=== PATIENT | female | born 1990 | race Caucasian/White ===

== ENCOUNTER 2019-10-02 08:35 | Inpatient (IN) | payer BC ==
[~2019-10-02] VITALS: Ht 165.1 cm; Wt 96.4 kg
[2019-10-02] VITALS (13 sets, daily range): BP systolic 108–142; BP diastolic 54–83; PULSE 66–92; TEMP 97.9–98.5
--- NOTE | 2019-10-02 19:00 | NUR ---
G1L0. 40-2. Ambulatory to LDR 5 with spouse. Clean gown on. EFM and TOCO explained and applied. Pt denies contractions, LOF, or vaginal bleeding. Reports good movement. Plan of care explained to pt and spouse who verbalize their understanding. 1915: IV started and labs obtained via IV site. LR bolus infusing without difficulties. Assessment and consent completed. 1945: called and updated on pts status. See physican notification. 2006: SVE /-3. Cytotoec explained and administered PO per orders. Questions answered. Call light within reach.
[2019-10-02] MEDS ORDERED: SYNTHROID0.075 MG/T PO (19:26)
[2019-10-02] MEDS ORDERED: VALTREX 50500 MG/TAB PO (19:26)
[2019-10-02] MEDS ORDERED: PRENATAL MVI PO (19:27)
[2019-10-02 20:17] LABS: BASO % 0.4 % (0.0-2.0); EOS # 0.1 (0.0-0.7); EOS % 1.2 % (0-4.0); GRAN # 6.6 (1.4-6.5); LYMPH # 2.6 (1.2-3.4); MEAN CELL VOLUME 76 fl (80.0-100.0); MEAN CORPUSCULAR HEMOGLOBIN 25 pg (27.0-31.0); MEAN CORPUSCULAR HGB CONC 33 g/dl (33.0-37.0); MEAN PLATELET VOLUME 10.1 fl (7.4-10.4); MONO # 0.8 (0.1-0.6); MONO % 8.1 % (1.7-9.3); PLATELET COUNT 326 K/mm3 (130-400); REDCELL DISTRIBUTION WIDTH-CV 14.7 % (11.5-14.5)
[2019-10-02 20:18] LABS: HEMATOCRIT 33.6 % (37.0-47.0)
[2019-10-02 20:59] LABS: ALBUMIN 3.6 gm/dL (3.5-5.0); BILIRUBIN,TOTAL 0.2 mg/dL (0.0-1.0); CREATININE, serum 0.58 (0.52-1.25); POTASSIUM 3.9 mmol/L (3.4-5.0); TOTAL PROTEIN 7.1 gm/dL (6.4-8.2)
[2019-10-02 22:21] LABS: COLLECTION METHOD CLEAN CATCH
[2019-10-02 22:25] LABS: MUCOUS Present /lpf; PH 6 (5-8); SQUAMOUS EPITHELIAL 0-2 /hpf; URINE APPEARANCE Clear; URINE BACTERIA Rare /hpf; URINE BILIRUBIN Negative (NEGATIVE); URINE BLOOD Negative (NEGATIVE); URINE COLOR Yellow; URINE GLUCOSE Negative (NEGATIVE); URINE KETONE Negative (NEGATIVE); URINE LEUKOCYTE ESTERASE Negative (NEGATIVE); URINE NITRATE Negative (NEGATIVE); URINE PROTEIN(semi-quant) Negative (NEGATIVE); URINE RBC 0-2 /hpf; URINE UROBILINOGEN Negative (NEGATIVE); URINE WBC 0-2 /hpf
[2019-10-03] VITALS (58 sets, daily range): BP systolic 107–159; BP diastolic 51–97; PULSE 57–107; TEMP 97.5–98.7
--- NOTE | 2019-10-03 00:17 | NUR ---
FHR strip reactive. Pt denies cramping or contractions at this time. TOCO not tracing contractions. Second dose of cytotec administered per orders. Pt off monitors to use restroom. Denies needing anything at this time.
--- NOTE | 2019-10-03 04:53 | NUR ---
FHR strip reactive. Pt off monitors to shower. Plan of care explained to pt who verbalizes understanding.
--- NOTE | 2019-10-03 05:35 | NUR ---
0527 & 0542: Pt sitting up eating toast. FHR tracing maternal heart rate, RN at bedside for audible tracing.
--- NOTE | 2019-10-03 06:05 | NUR ---
FHR strip reactive. Pitocin explained and started at this time. Plan of care explained.
--- NOTE | 2019-10-03 11:59 | NUR ---
Pt sitting upright for epidural placement. Difficulty tracing FHR due to maternal position. RN at bedside adjusting monitors. FHR audilble.
--- NOTE | 2019-10-03 12:15 | NUR ---
Late deceleration noted with decrease BP after epidural placement. Ephedrine given. See EMAR. 1217-Pt repositioned RL. LR bolus infusing. Pitocin shut off at this time. 1222-Late deceleration at lowest point to 80s. Pt repositioned LL. Second dose of Ephedrine given. See EMAR. 1225-FHR returns to 150-155 baseline with moderate variability. SVE per this RN 4-5/[address]/-[address] Henriquez notified. See physician notification. Orders to restart pitocin at 2mU at 1300.
--- NOTE | 2019-10-03 15:45 | NUR ---
Dr. Henriquez at bedside. PADDY unchanged. Discussed with patient concerns for FHR and need for delivery. Pt agrees to POC. Pt prepped for OR. 2852-Pt taken off monitors and leaves OR via bed
[2019-10-04] VITALS: BP 138/68; PULSE 86; TEMP 97.9
--- NOTE | 2019-10-04 | NUR ---
Pt up to the bathroom with standby assist and without complications. Razo removed. Chaparrita-care done. Pt assisted back to bed. Plan of care reviewed.
[2019-10-04 05:00] VITALS: BP 130/78; PULSE 85; TEMP 98.6
[2019-10-04 06:24] LABS: HEMATOCRIT 29.7 % (37.0-47.0); HEMOGLOBIN 9.7 g/dl (12.5-16.0)
[2019-10-04] MEDS ORDERED: IBU600 MG PO (07:41)
[2019-10-04] MEDS ORDERED: PERCOCET 325 MG1 TA2 PO (07:41)
[2019-10-04 08:05] VITALS: BP 121/71; PULSE 83; TEMP 98.4
[2019-10-04 17:10] VITALS: BP 135/65; PULSE 86; TEMP 98.2
[2019-10-04 19:35] VITALS: BP 140/82; PULSE 84; TEMP 97.9
[2019-10-05 04:00] VITALS: BP 130/72; PULSE 78; TEMP 98
[2019-10-05 07:58] VITALS: BP 146/84; PULSE 98; TEMP 98.7
--- NOTE | 2019-10-05 11:00 | NUR ---
1055- Scheduled Motrin provided to Pt by this RN. When scanning box appeared saying medication given too early. Upon investigation, a Motrin was documented by Regulo Alfaro RN at 0748. This RN calls and speaks to JANETH Mckee that states she scanned her medications but she did not give Motrin but instead gave Sennokot. She stated this same thing happed to her with a different Pt last week. This RN reviews medications pulled from [facility] and [facility]i did not pull a Motrin on her shift. Motrin given to Pt per order by this RN. 1110- Pharmacy notified of situation and [facility] is looking into this.
--- NOTE | 2019-10-05 11:40 | NUR ---
1140- This RN asks Pt if she remembers what the pills looked like that Rosemary gave. Pt states one pill was small and oval, the other was round and orange or red. Pt reassured that those medications were the ones she was supposed to receive. Pt helpful and understanding.
[2019-10-05 16:30] VITALS: BP 150/83; PULSE 97; TEMP 97.8
[2019-10-05 19:40] VITALS: BP 136/73; PULSE 84; TEMP 98
[2019-10-06 07:02] VITALS: BP 140/82; PULSE 89; TEMP 98.2
== END 2019-10-06 14:15 | disposition home or self-care (01) | DRG 788 ==
LOC: LDR → OB 10-03 16:00
PROVIDERS: ADMIT Obstetrics & Gynecology
PROC: 3E0P7GC Introduction of Other Therapeutic Substance into Female Reproductive, Via Natural or Artificial Opening (ICD-10-PCS; 2019-10-02)
PROC: 10D00Z1 Extraction of Products of Conception, Low, Open Approach (ICD-10-PCS; principal; 2019-10-03)
PROC: 10907ZC Drainage of Amniotic Fluid, Therapeutic from Products of Conception, Via Natural or Artificial Opening (ICD-10-PCS; 2019-10-03)
PROC: 3E033VJ Introduction of Other Hormone into Peripheral Vein, Percutaneous Approach (ICD-10-PCS; 2019-10-03)
DX: O13.3 Gestational [pregnancy-induced] hypertension without significant proteinuria, third trimester (principal); O26.53 Maternal hypotension syndrome, third trimester; O36.63X0 Maternal care for excessive fetal growth, third trimester, not applicable or unspecified; O36.8330 Maternal care for abnormalities of the fetal heart rate or rhythm, third trimester, not applicable or unspecified; O99.284 Endocrine, nutritional and metabolic diseases complicating childbirth; E03.9 Hypothyroidism, unspecified; O99.214 Obesity complicating childbirth; Z3A.40 40 weeks gestation of pregnancy; Z37.0 Single live birth
CPT/HCPCS: J0690; J1885; J2270; J2370; J2400; J2405; J2590; J2795; J7120

== ENCOUNTER → 2021-12-08 | Outpatient (CLI) | payer BC ==
[~2021-12-08] MED LIST: IBU600 MG PO; PERCOCET 325 MG1 TA2 PO; PRENATAL MVI PO; SYNTHROID0.075 MG/T PO; VALTREX 50500 MG/TAB PO
== END ==
LOC: MC.RAD 12:52
DX: N63.21 Unspecified lump in the left breast, upper outer quadrant (principal)

== ENCOUNTER 2023-04-07 03:12 | Inpatient (IN) | payer BC ==
[2023-04-07] VITALS (21 sets, daily range): BP systolic 128–166; BP diastolic 61–92; PULSE 72–110; TEMP 97.8–99.4
[~2023-04-07] VITALS: Ht 165.1 cm; Wt 101.4 kg
[2023-04-07 04:28] LABS: BASO # 0.1 K/mm3 (0.0-0.2); BASO % 0.4 % (0.0-2.0); EOS # 0.1 K/mm3 (0.0-0.7); EOS % 0.8 % (0.0-4.0); GRAN # 10.1 K/mm3 (1.4-6.5); GRAN % 77.5 % (42.2-75.2); HEMATOCRIT 35.5 % (37.0-47.0); HEMOGLOBIN 11.2 g/dl (12.5-16.0); LYMPH # 1.8 K/mm3 (1.2-3.4); LYMPH % 14.2 % (20.0-51.0); MEAN CELL VOLUME 73 fl (80.0-100.0); MEAN CORPUSCULAR HEMOGLOBIN 23 pg (27-31); MEAN CORPUSCULAR HGB CONC 32 g/dl (33.0-37.0); MEAN PLATELET VOLUME 9.4 fl (7.4-10.4); MONO # 0.9 K/mm3 (0.1-0.6); MONO % 6.6 % (1.7-9.3); PLATELET COUNT 380 K/mm3 (130-400); RED BLOOD COUNT 4.86 M/mm3 (4.10-5.30); REDCELL DISTRIBUTION WIDTH-CV 15.8 % (11.5-14.5)
[2023-04-07] MEDS ORDERED: IBU800 M1 PO (07:47)
[2023-04-08 00:15] VITALS: BP 132/83; PULSE 79; TEMP 97.8
[2023-04-08 05:31] VITALS: BP 133/77; PULSE 70
[2023-04-08 07:33] VITALS: BP 134/81; PULSE 79; TEMP 97.7
== END 2023-04-08 12:00 | disposition home or self-care (01) | DRG 806 ==
LOC: LDRO 03:12 → OB 04:16 → LDR 04:16 → OB 11:00
PROVIDERS: ADMIT Student in an Organized Health Care Education/Training Program
PROC: 10E0XZZ Delivery of Products of Conception, External Approach (ICD-10-PCS; principal; 2023-04-07)
PROC: 0HQ9XZZ Repair Perineum Skin, External Approach (ICD-10-PCS; 2023-04-07)
PROC: 0HBJXZZ Excision of Left Upper Leg Skin, External Approach (ICD-10-PCS; 2023-04-07)
DX: O41.03X0 Oligohydramnios, third trimester, not applicable or unspecified (principal); O98.52 Other viral diseases complicating childbirth; Z37.0 Single live birth; O48.0 Post-term pregnancy; Z3A.40 40 weeks gestation of pregnancy; O99.284 Endocrine, nutritional and metabolic diseases complicating childbirth; E03.9 Hypothyroidism, unspecified; O99.214 Obesity complicating childbirth; O34.211 Maternal care for low transverse scar from previous cesarean delivery; B00.9 Herpesviral infection, unspecified; O76 Abnormality in fetal heart rate and rhythm complicating labor and delivery; O70.0 First degree perineal laceration during delivery; Z23 Encounter for immunization
CPT/HCPCS: J2405; J2590; J7120